=== PATIENT | female | born 1995 | race Caucasian/White ===

== ENCOUNTER 2019-07-22 03:38 | Emergency (ER) | payer SELFPAY ==
[~2019-07-22] VITALS: Ht 157.5 cm; Wt 54.4 kg
[2019-07-22 03:40] VITALS: BP 156/74
[2019-07-22] MEDS ORDERED: KLONOPIN0.5 MG ORAL (03:40)
--- NOTE | 2019-07-22 03:45 | NUR ---
ED Nurse Note: Patient brought in by ambulance, RA [id number], with complaints of OD from Fentanyl, patient reports taking too much on accident and remembering being in the bathroom. Patient presents with 1-2cm laceration above the left eyebrow but refuses care and insists on leaving with her boyfriend to go home and sleep. Patient is ambulatory with steady gait, A&Ox4 and reports feeling fine and refuses to answer evaluative assessment questions or sign any paperwork. Patient's IV from right AC 18G was removed, patient given gauze for her left eyebrow laceration to hold pressure prior to her departure Against Medical Advice.
--- NOTE | 2019-07-22 03:47 | Emergency Room Report ---
History of Present Illness General Chief Complaint: Substance Abuse Source: Patient Present Illness HPI 23-year-old female with history of substance abuse and chronic pain. She is taking Suboxone. Presents with chief plan to overdose. Said that her boyfriend says she took a couple hits of fentanyl. She was found unresponsive because 911. She has pinpoint pupil on arrival by EMS. They gave her Narcan and she responded. Now she is awake. No nausea no vomiting. No fever chills. Not suicidal or homicidal. She is back to baseline. She does not want any intervention. She does not want blood work. She does not want to stay. She said her boyfriend will pick her up. Denies any long-acting opiates. Allergies: Coded Allergies: No Known Allergies (Unverified , 07/22/19) Patient History Past Medical History: see triage record, old chart reviewed Past Surgical History: none Pertinent Family History: none Social History: Reports: drug use; Denies: smoking Last Menstrual Period: 07/19/19 Now: No Immunizations: other Reviewed Nursing Documentation: PMH: Agreed; PSxH: Agreed Review of Systems Eye: Denies: eye pain, blurred vision ENT: Denies: ear pain, nose congestion, throat swelling Respiratory: Denies: cough, shortness of breath Cardiovascular: Denies: chest pain, palpitations Gastrointestinal: Denies: abdominal pain, diarrhea, nausea, vomiting Musculoskeletal: Denies: back pain, joint pain Skin: Denies: rash Neurological: Denies: headache, numbness Endocrine: Denies: increased thirst, increased urine Hematologic/Lymphatic: Denies: easy bruising All Other Systems: negative except mentioned in HPI Physical Exam Vital Signs Date Time Temp Pulse Resp B/P (MAP) Pulse Ox O2 Delivery O2 Flow Rate FiO2 07/22/19 03:36 97.9 124 22 156/74 (101) 98 Room Air Vitals with tachycardia Sp02 EP Interpretation: reviewed, normal General Appearance: well appearing, no apparent distress, alert Head: normocephalic, atraumatic Eyes: bilateral eye PERRL, bilateral eye EOMI ENT: hearing grossly normal, normal pharynx Neck: full range of motion, supple, no meningismus Respiratory: chest non-tender, lungs clear, normal breath sounds Cardiovascular #1: regular rate, rhythm, no murmur Gastrointestinal: normal bowel sounds, non tender, no mass, no organomegaly, no bruit, non-distended Musculoskeletal: back normal, normal range of motion, gait/station normal Psychiatric: mood/affect normal Medical Decision Making Diagnostic Impression: Primary Impression: Opiate overdose Qualified Codes: T40.601A - Poisoning by unspecified narcotics, accidental ( unintentional), initial encounter ER Course Patient presents with opiate overdose. Advised patient to stay for at least an hour to make sure there is no rebound effect. Patient is competent. She refused to stay. She does not want any intervention. She will leave AGAINST MEDICAL ADVICE. She refused to sign any paperwork. This patient is a chronic risk of self injury due to poor impulse control, limited coping skills, and judgment intermittently impaired by intoxication. I believe that the available clinical evidence to suggest that these characteristics derived primarily from personality disorder and are likely very stable over time. Hospitalization would likely attenuate risk of self-harm only during senior living period, without lasting risk reduction. Serious self-harm , while possible, would likely be inadvertent, and because of impulsivity, and foreseeable. For these reasons, I do not believe hospitalization would provide meaningful reduction in risk of self-harm. Last Vital Signs Date Time Temp Pulse Resp B/P (MAP) Pulse Ox O2 Delivery O2 Flow Rate FiO2 07/22/19 03:36 97.9 124 22 156/74 (101) 98 Room Air Status: improved Disposition: AGAINST MEDICAL ADVICE Condition: Stable Tony Nicholson MD Jul 22, 2019 03:47
--- NOTE | 2019-07-22 03:50 | NUR ---
AMA: PATIENT REFUSES TO SIGN AMA FORM. PATIENT DEPARTED WITH ALL BELONGINGS TO LOBBY TO AWAIT THE ARRIVAL OF HER BOYFRIEND. PATIENT REFUSED SHOES.
== END 2019-07-22 03:40 | disposition left against medical advice (07) ==
LOC: EDBD 03:38 → EMR 03:38
DX: T40.601A Poisoning by unspecified narcotics, accidental (unintentional), initial encounter (principal); X58.XXXA Exposure to other specified factors, initial encounter; Y92.9 Unspecified place or not applicable
CPT/HCPCS: 99282